=== PATIENT | female | born 1995 | race Caucasian/White ===

== ENCOUNTER 2016-11-09 21:44 | Outpatient (CLI) | payer OTHER ==
[~2016-11-09 21:44] MED LIST: MULT-132 PO
--- NOTE | 2016-11-09 23:10 | RADRPT ---
PROCEDURE: US OB. CLINICAL INDICATION: labor. TECHNIQUE: Multiple sonographic images of the pelvis were obtained. Transabdominal imaging only wa s performed. The images were reviewed on a PACS workstation. COMPARISON: OB ultrasound dated 06/30/2014. FINDINGS: There is a single viable intrauterine gestation. Cardiac activity is present with a heart rate of 1 61 bpm. There is a cephalic presentation. Measurements were made in order to determine age. The results are as follows: BPD = 8.43 cm HC = a 31.16 cm AC = 28.4 cm FL = 5.9 cm Estimated gestational age of approximately 33 weeks 0 days. The estimated date of delivery is 12/28/2016. The EFW = 1946 g, at the 48.9 percentile. The placenta is anterior, grade 1. There is no evidence for an abruption or placenta previa. IMPRESSION: 1. Single viable intrauterine gestation of approximately 33 weeks 0 days. 2. The estimated date of delivery is 12/28/2016. RPTAT: HLBP .Teodoro Hagan MD, MD Date Time Electronically viewed and signed by .Teodoro Hagan MD, MD on 11/09/2016 23:10 .P/
--- NOTE | 2016-11-09 23:11 | RADRPT ---
PROCEDURE: OB ultrasound for biophysical profile with PLAMER. CLINICAL INDICATION: labor. TECHNIQUE: Multiple sonographic images of the gravid uterus were obtained. COMPARISON: OB ultrasound dated 06/30/2014. FINDINGS: breathing movement = 2/2 tone = 2/2 motion = 2/2 PALMER = 2/2 Single viable intrauterine gestation. Heart rate: 163 bpm. Presentation: Cephalic. Placenta: Anterior, grade 1. No evidence of abruption or placenta previa. PALMER = 15.8 cm The cervix is closed measuring 3.6 cm in length. IMPRESSION: 1. Single viable intrauterine gestation. 2. Biophysical profile = 8. 3. PALMER = 15.8 cm. RPTAT: HLBP .Teodoro Hagan MD, Date Time Electronically viewed and signed by .Teodoro Hagan MD, on 11/09/2016 23:11 .P/
[2016-11-10 00:13] LABS: BASOPHILS % 0.2 % (0.0-2.0); EOSINOPHILS # 0.1 10^3/ul (0.0-0.5); EOSINOPHILS % 1.1 % (0.0-7.0); HEMATOCRIT 34.4 % (37.0-47.0); HEMOGLOBIN 12.1 g/dl (12.0-16.0); LYMPHOCYTES # 3.1 10^3/ul (0.8-2.9); LYMPHOCYTES % 23.9 % (18.0-55.0); MEAN CORPUSCULAR HEMOGLOBIN 31.9 pg (29.0-33.0); MEAN CORPUSCULAR HGB CONC 35.2 g/dl (32.0-37.0); MEAN CORPUSCULAR VOLUME 90.8 fl (72.0-104.0); MEAN PLATELET VOLUME 8.4 fl (7.4-10.4); MONOCYTES % 7.7 % (0.0-13.0); NEUTROPHILS % 66.2 % (30.0-74.0); PLATELET COUNT 201 10^3/UL (140-415); RED BLOOD COUNT 3.79 10^6/ul (4.20-5.40); RED CELL DISTRIBUTION WIDTH 12.1 % (11.5-14.5); WHITE BLOOD COUNT 12.9 10^3/ul (4.8-10.8)
[2016-11-10 00:51] LABS: ADD UMIC YES; UR ASCORBIC ACID NEGATIVE (NEGATIVE); UR BACTERIA FEW /HPF (NONE SEEN); UR BILIRUBIN (Dip) NEGATIVE (NEGATIVE); UR BLOOD (Dip) 3+ mg/dL (NEGATIVE); UR CLARITY SLIGHTLY CLOUDY (CLEAR); UR COLOR YELLOW (YELLOW); UR GLUCOSE (Dip) NEGATIVE (NEGATIVE); UR KETONES (Dip) NEGATIVE (NEGATIVE); UR LEUKOCYTE ESTERASE (Dip) TRACE Leu/ul (NEGATIVE); UR MUCUS FEW /HPF (NONE SEEN); UR NITRITE (Dip) NEGATIVE (NEGATIVE); UR RBC > 182 /HPF (0-5); UR SPECIFIC GRAVITY (Dip) 1.014 (1.003-1.030); UR SQUAMOUS EPITHELIAL CELL FEW /HPF (FEW); UR TOTAL PROTEIN (Dip) 1+ mg/dl (NEGATIVE); UR UROBILINOGEN (Dip) NEGATIVE (NEGATIVE)
--- NOTE | 2016-11-10 02:25 | PN ---
Triage Information Date/Time 11/10/16 0220 Reason for visit: Abd/pelvic pain Weeks of Gestation 32weeks /Para Diabetes: none Hypertention: none Additional information DFM nausea and vomiting Objective Heart Rate: 140's Contractions: None Results/Medications Result Diagram: 11/09/16 2340 Results 24 hrs Laboratory Tests Test 11/09/16 21:40 11/09/16 23:40 Urine Color YELLOW Urine Clarity SLIGHTLY CLOUDY A Urine pH 7.0 Urine Specific [place] 1.014 Urine Ketones NEGATIVE Urine Nitrite NEGATIVE Urine Bilirubin NEGATIVE Urine Urobilinogen NEGATIVE Urine Leukocyte Esterase TRACE A Urine Microscopic RBC > 182 H Urine Microscopic WBC 6 H Urine Squamous Epithelial Cells FEW Urine Bacteria FEW A Urine Mucus FEW A Urine Hemoglobin 3+ H Urine Glucose NEGATIVE Urine Total Protein 1+ H White Blood Count 12.9 H Red Blood Count 3.79 L Hemoglobin 12.1 Hematocrit 34.4 L Mean Corpuscular Volume 90.8 Mean Corpuscular Hemoglobin 31.9 Mean Corpuscular Hemoglobin Concent 35.2 Red Cell Distribution Width 12.1 Platelet Count 201 Mean Platelet Volume 8.4 Neutrophils % 66.2 Lymphocytes % 23.9 Monocytes % 7.7 Eosinophils % 1.1 Basophils % 0.2 Nucleated Red Blood Cells % 0.0 Neutrophils # (Manual) 8.6 H Lymphocytes # 3.1 H Monocytes # 1.0 H Eosinophils # 0.1 Basophils # 0.0 Nucleated Red Blood Cells # 0.0 Medications cephalexin 500mg q6hr for 7days Imaging Results BPP 8/8 cVL3.6 AFI15.6 Disposition: Discharge Assessment/Plan IUP 32weeks UTI plan discharge home with RX cephalexin and increase fluid intake LACI JAQUEZ MD Nov 10, 2016 02:25
--- NOTE | 2016-11-10 04:22 | TRIAGE ---
OB Triage Datetime Report Generated by CPN: 11/10/2016 04:21 Datetime: 11/09/2016 22:00 Time of Arrival: 11/09/2016 21:32 EGA: 32.0 Arrived By: Wheelchair Arrived From: Home Chief Complaint: c/o pelvic pain and lower back pain since 1200, DFM, and emesis x1 Movement: Decreased Contractions: Irregular Time Contractions Began: 11/09/2016 12:00 Rupture of Membranes: Denies Vaginal Bleeding: None Vaginal Discharge: Present Recent Sexual Intercouse: Denies Abdominal Trauma: Not Applicable Patient Complaints: Cramping; Back Pain; Nausea; Other Time Provider Notified: 11/09/2016 22:05 Provider Notified: Dr York Initial Plan: EFM,SVE, PO hydration UA,CBC,CVL,BPP,EFW
== END 2016-11-10 01:15 | disposition home or self-care (01) ==
LOC: OBT 21:44 → L-D 21:47 → OBT 11-10 01:15
PROVIDERS: ATTEND Obstetrics & Gynecology
DX: O26.893 Other specified pregnancy related conditions, third trimester (principal); O36.8130 Decreased fetal movements, third trimester, not applicable or unspecified; R10.2 Pelvic and perineal pain; Z3A.32 32 weeks gestation of pregnancy
CPT/HCPCS: 36415; 76815; 76817; 76818; 81001; 85025; G0463

== ENCOUNTER 2016-12-26 06:20 | Inpatient (IN) | payer OTHER ==
[~2016-12-26] VITALS: Ht 162.6 cm; Wt 109.0 kg
[2016-12-26] MEDS ORDERED: LACTATED RINGER'S 1,000 ML IV PRN ×2 (06:55→07:11)
[2016-12-26] MEDS ORDERED: LACTATED RINGER'S 1,000 ML IV SCH (06:59)
[2016-12-26] MEDS ORDERED: METHYLERGONOVINE 0.2 MG INJ IM PRN ×3 (07:00→20:30)
[2016-12-26] MEDS ORDERED: CARBOPROST 250 MCG INJ IM PRN ×3 (07:00→20:30)
[2016-12-26] MEDS ORDERED: MISOPROSTOL 200 MCG TAB PR PRN ×3 (07:00→20:30)
[2016-12-26] MEDS ORDERED: OXYTOCIN 30 UNITS/LR 500 ML IV PRN ×3 (07:00→20:30)
[2016-12-26] MEDS ORDERED: LIDOCAINE 1% (MPF) 30 ML INJ INJ PRN ×2 (07:00→08:00)
[2016-12-26 07:37] VITALS: Ht 162.6 cm; Wt 109.0 kg
[2016-12-26 07:38] VITALS: BP 114/65; PULSE 100; RESP 20
[2016-12-26 07:53] LABS: BASOPHILS % 0.3 % (0.0-2.0); EOSINOPHILS # 0.1 10^3/ul (0.0-0.5); EOSINOPHILS % 0.8 % (0.0-7.0); HEMATOCRIT 34.5 % (37.0-47.0); HEMOGLOBIN 11.7 g/dl (12.0-16.0); LYMPHOCYTES # 2.2 10^3/ul (0.8-2.9); LYMPHOCYTES % 19.2 % (18.0-55.0); MEAN CORPUSCULAR HEMOGLOBIN 30.9 pg (29.0-33.0); MEAN CORPUSCULAR HGB CONC 33.9 g/dl (32.0-37.0); MONOCYTE # 0.9 10^3/ul (0.3-0.9); NEUTROPHIL # 8.3 10^3/ul (1.6-7.5); NEUTROPHILS % 70.8 % (30.0-74.0); PLATELET COUNT 189 10^3/UL (140-415); RED BLOOD COUNT 3.79 10^6/ul (4.20-5.40); RED CELL DISTRIBUTION WIDTH 12.3 % (11.5-14.5); WHITE BLOOD COUNT 11.7 10^3/ul (4.8-10.8)
[2016-12-26 07:56] LABS: INR 1.02; PROTIME 13.4 Sec (12.2-14.2)
[2016-12-26 07:57] LABS: PARTIAL THROMBOPLASTIN TIME 31.5 Sec (25.0-35.0)
[2016-12-26] MEDS ORDERED: IBUPROFEN 600 MG TAB PO PRN (08:00)
[2016-12-26] MEDS ORDERED: HYDROCODONE/APAP (5/325) TAB PO PRN ×3 (08:00→20:30)
[2016-12-26] MEDS ORDERED: BUTORPHANOL 2 MG INJ IV PRN ×2 (08:00)
[2016-12-26] MEDS ORDERED: OXYTOCIN 30 UNITS/LR 500 ML IV SCH ×3 (08:00)
--- NOTE | 2016-12-26 08:47 | HP ---
Date/Time of Note Date/Time of Note DATE: 12/26/16 TIME: 08:46 OB - History Hx of Present Chief Complaint: PASSAGE OF FLUID PER VAGINA Estimated Due Date: Jan 04, 2017 : 2 Para: 1 Care: Good Care Ultrasounds: Normal mid trimester US Obstetrical Complications: None Medical Complications: None Past Family/Social History * Past Medical, Surgical, Family and Obstetric Histories reviewed from chart. Blood Type: O+ Rubella: immune RPR/VDRL: Negative GBS Status: Negative HBsAG: Negative OB Admission Exam Vital Signs Vital Signs Vital Signs Date Time Temp Pulse Resp B/P Pulse Ox O2 Delivery O2 Flow Rate FiO2 12/26/16 07:38 97.9 100 20 114/65 Room Air Last 72 hours Lab Results CBC & BMP 12/26/16 07:14 UZIEL HAWTHORNE MD Dec 26, 2016 08:47
[2016-12-26] MEDS: LACTATED RINGER'S 1,000 ML IV SCH ×2 (09:58→12:10)
[2016-12-26] MEDS ORDERED: FENTAnyl 2MCG/ML-ROPIV 0.2% 100 ML ONE (10:45)
[2016-12-26] MEDS ORDERED: ONDANSETRON 4 MG INJ ONE (12:40)
[2016-12-26] MEDS ORDERED: ONDANSETRON 4 MG INJ IV STA (12:44)
[2016-12-26] MEDS ORDERED: FENTAnyl 2MCG/ML-ROPIV 0.2% 100 ML BAG EPI SCH (13:30)
[2016-12-26] MEDS ORDERED: DIPHENHYDRAMINE 50 MG INJ IV PRN (13:30)
[2016-12-26] MEDS ORDERED: NALOXONE (0.4 MG/ML) INJ IV PRN (13:30)
[2016-12-26] MEDS ORDERED: ONDANSETRON 4 MG INJ IV PRN ×2 (13:30→20:30)
[2016-12-26] MEDS ORDERED: MINERAL OIL LIGHT 10 ML VIAL TOP ONE (16:30)
--- NOTE | 2016-12-26 16:51 | LDN ---
Date/Time of Note Date/Time of Note DATE: 12/26/16 TIME: 16:49 Delivery Summary Normal vaginal delivery baby boy.No episiotomy or lacerations. Weeks of Gestation 38 and 4/7 days Placenta Delivered: Spontaneously, Intact & Complete Meconium: none Episiotomy: No Anesthesia type: Epidural Estimated blood loss: 250 Sponge & Needle done & correct: Yes All needle counts correct: Yes Any foreign bodies felt in the: No Problems: UZIEL HAWTHORNE MD Dec 26, 2016 16:51
[2016-12-26 20:15] VITALS: BP 117/57; PULSE 93; RESP 19
[2016-12-26 20:30] VITALS: BP 100/56; PULSE 93; RESP 19
[2016-12-26] MEDS ORDERED: ONDANSETRON 4 MG TAB PO PRN (20:30)
[2016-12-26] MEDS ORDERED: NA PHOSPHATE/BIPHOS 133 ML ENEMA PR PRN (20:30)
[2016-12-26] MEDS ORDERED: ACETAMINOPHEN 325 MG TAB PO PRN ×2 (20:30)
[2016-12-26] MEDS ORDERED: DIBUCAINE 1% 30 GM OINT PR PRN (20:30)
[2016-12-26] MEDS ORDERED: BENZOCAINE 20% 56 ML SPRAY TOP PRN (20:30)
[2016-12-26] MEDS ORDERED: DIPHENHYDRAMINE 25 MG CAP PO PRN (20:30)
[2016-12-26] MEDS ORDERED: ZOLPIDEM 5 MG TAB PO PRN (20:30)
[2016-12-26] MEDS ORDERED: WITCH HAZEL/GLYCERIN PAD PR PRN (20:30)
[2016-12-26] MEDS: MAGNESIUM HYDROXIDE 30ML CUP PO SCH (20:45)
[2016-12-26] MEDS: OXYTOCIN 30 UNITS/LR 500 ML IV SCH (20:48)
[2016-12-26] MEDS: IBUPROFEN 800 MG TAB PO SCH (23:22)
[2016-12-27] VITALS: BP 96/51; PULSE 91; RESP 18
[2016-12-27] MEDS: OXYTOCIN 30 UNITS/LR 500 ML IV SCH (00:06)
[2016-12-27 04:00] VITALS: BP 97/50; PULSE 84; RESP 18
[2016-12-27] MEDS: IBUPROFEN 800 MG TAB PO SCH ×3 (07:04→18:13)
--- NOTE | 2016-12-27 07:32 | PN ---
Date/Time of Note Date/Time of Note DATE: 12/27/16 TIME: 07:31 OB Subjective Subjective Subjective Doing well.Nursing.In good spirits. OB Objective Objective Objective Afebrile.CBC pending.Lochia normal. HEENT: WNL Heart: Rhythm Normal Lungs: Clear Abdomen: WNL Extremities: Normal UZIEL HAWTHORNE MD Dec 27, 2016 07:32
[2016-12-27 08:30] VITALS: BP 100/53; PULSE 89; RESP 18
[2016-12-27] MEDS: MAGNESIUM HYDROXIDE 30ML CUP PO SCH ×2 (09:01→20:12)
[2016-12-27 11:04] LABS: BASOPHILS % 0.3 % (0.0-2.0); EOSINOPHILS # 0.2 10^3/ul (0.0-0.5); EOSINOPHILS % 1.5 % (0.0-7.0); HEMATOCRIT 33.2 % (37.0-47.0); HEMOGLOBIN 11.5 g/dl (12.0-16.0); LYMPHOCYTES # 2.9 10^3/ul (0.8-2.9); LYMPHOCYTES % 24.3 % (18.0-55.0); MEAN CORPUSCULAR HEMOGLOBIN 31.9 pg (29.0-33.0); MEAN CORPUSCULAR HGB CONC 34.6 g/dl (32.0-37.0); MEAN CORPUSCULAR VOLUME 92.2 fl (72.0-104.0); MEAN PLATELET VOLUME 8.7 fl (7.4-10.4); MONOCYTE # 1.1 10^3/ul (0.3-0.9); MONOCYTES % 8.8 % (0.0-13.0); NEUTROPHIL # 7.7 10^3/ul (1.6-7.5); NEUTROPHILS % 64.3 % (30.0-74.0); PLATELET COUNT 195 10^3/UL (140-415); RED CELL DISTRIBUTION WIDTH 12.1 % (11.5-14.5); WHITE BLOOD COUNT 11.9 10^3/ul (4.8-10.8)
[2016-12-27 16:38] VITALS: BP 106/65; PULSE 89; RESP 18
[2016-12-27 20:00] VITALS: BP 95/63; PULSE 85; RESP 18
[2016-12-28] MEDS: IBUPROFEN 800 MG TAB PO SCH ×2 (00:22→06:12)
[2016-12-28 04:00] VITALS: BP 109/72; PULSE 90; RESP 18
[2016-12-28 07:40] VITALS: BP 119/66; PULSE 89; RESP 16
--- NOTE | 2016-12-28 07:55 | PD.PPDC ---
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
--- NOTE | 2016-12-28 07:58 | DS ---
Date/Time of Note Date/Time of Note DATE: 12/28/16 TIME: 07:57 Obstetrical Discharge Record Final Diagnosis Final Diagnosis: Term delivered Vaginal Delivery Obstetrical Delivery: Spontaneous Condition on Discharge Physical Assessment Last Vitals: VS stable.Afebrile Voiding: Yes Bowel Movement: Yes Breast: Soft, non-tender Fundus: Firm Calf Tenderness: No Patient Condition: Good UZIEL HAWTHORNE MD Dec 28, 2016 07:58
[2016-12-28] MEDS ORDERED: DIPHTH/TET/ACEL PERTUSS (ADULT) 0.5 ML VIAL IM* ONE (09:00)
[2016-12-28] MEDS ORDERED: MEASLES,MUMPS,RUBELLA VACCINE INJ SC* ONE (09:00)
[2016-12-28] MEDS: MAGNESIUM HYDROXIDE 30ML CUP PO SCH (09:02)
== END 2016-12-28 15:01 | disposition home or self-care (01) | DRG 775 ==
LOC: OBT 06:20 → L-D 06:20 → OBT 06:45 → PP1 20:16
PROVIDERS: ADMIT Specialist; ATTEND Specialist
PROC: 10E0XZZ Delivery of Products of Conception, External Approach (ICD-10-PCS; principal; 2016-12-26)
DX: O80 Encounter for full-term uncomplicated delivery (principal); Z37.0 Single live birth; Z3A.38 38 weeks gestation of pregnancy
CPT/HCPCS: 36415; 62319; 85025; 85610; 85730; 86592; 86900; 86901; 87340; 90715; G0463; J2405; J2590; J3010; J7120